=== PATIENT | male | born 1980 | race Caucasian/White ===

== ENCOUNTER 2017-09-11 11:55 | Emergency (ER) | payer MEDICARE, OTHER ==
[~2017-09-11] VITALS: Ht 180.3 cm; Wt 95.3 kg
[~2017-09-11 11:55] MED LIST: ASPI81TA50 PO; ATOR10TA PO; CARV3.12 PO; INSU100C4 SQ; INSU100V13 SQ; INSU100V31 SQ; LISI-334 PO; LISI10TA2 PO; LISI40TA PO; METO25TA4 PO; METO50TA29 PO; METO50TA6 PO
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
--- NOTE | 2017-09-11 13:12 | RAD ---
CT of the head without contrast, 09/11/2017: History: Head trauma The ventricles are within normal limits in size. There is no shift of the midline structures. There is no evidence of acute intracranial hemorrhage or mass effect. IMPRESSION: No acute intracranial abnormality is detected. CT of the facial bones without contrast, 09/11/2017: Noncontrast scans were obtained with multiplanar reconstructions produced. No facial bone fracture is identified. There is moderate mucosal thickening in the left maxillary sinus and both ethmoid sinuses. There is a defect in the medial wall of the left maxillary sinus compatible with previous sinus surgery. There is more extensive opacification of the right maxillary sinus in a pattern suggesting a combination of mucosal thickening and a large retention cyst. The frontal and sphenoid sinuses are clear. No free fluid is evident in the sinuses. There is swelling of the nasal turbinates with opacification of much of the nasal cavity anteriorly. The orbital contents are unremarkable. Moderate dental disease is noted. IMPRESSION: 1. Chronic paranasal sinusitis. 2. No acute facial bone abnormality is detected. PQRS Compliance Statement: One or more of the following individualized dose reduction techniques were utilized for this examination: 1. Automated exposure control 2. Adjustment of the mA and/or kV according to patient size 3. Use of iterative reconstruction technique
[2017-09-11 13:34] VITALS: BP 168/89
== END 2017-09-11 13:25 | disposition home or self-care (01) ==
LOC: ER 11:55
DX: S09.90XA Unspecified injury of head, initial encounter (principal); S00.83XA Contusion of other part of head, initial encounter; E11.9 Type 2 diabetes mellitus without complications; E78.00 Pure hypercholesterolemia, unspecified; I10 Essential (primary) hypertension; R04.0 Epistaxis; W55.22XA Struck by cow, initial encounter; Y93.89 Activity, other specified; Y99.8 Other external cause status; Y92.89 Other specified places as the place of occurrence of the external cause
CPT/HCPCS: 70450; 70486; 99284-25

== ENCOUNTER 2018-08-10 19:05 | Emergency (ER) | payer MEDICARE, OTHER ==
[~2018-08-10] VITALS: Ht 180.3 cm; Wt 95.3 kg
--- NOTE | 2018-08-10 19:14 | ED.ADGEN ---
Past History Past Medical History: Diabetes, High Cholesterol, Hypertension, Renal Disease, Other Past Surgical History: Other Past Surgical History AV graft for HD Smoking: Non-smoker Alcohol Use: None Drug Use: None Adult General Chief Complaint Chief Complaint ".. I am not feeling well... fever,... chills.;.. I am on hemodialysis.. I did not miss any.. I am just sick..." HPI HPI Patient is a 38 year old male who presents with above hx and complaints of fever and shaking chills today. Patient is on hemodialysis Saturdays for his end-stage renal disease secondary to diabetes complications. Pt. did get HD on Monday, Mon. Monday due to holiday schedule. Patient also complaining of increased shortness of breath, diaphoresis and tachycardia. Patient denies any travel or specific ill contacts. Patient normally follows with Dr. Simental. Review of Systems Review of Systems Constitutional: Hx of fever or chills [] Eyes: Denies change in visual acuity, redness, or eye pain [] HENT: Denies nasal congestion or sore throat [] Respiratory: Complaints of shortness of breath [] Cardiovascular: No additional information not addressed in HPI [] GI: Denies abdominal pain, nausea, vomiting, bloody stools or diarrhea [] : Denies dysuria or hematuria [] Musculoskeletal: Denies back pain or joint pain [] Integument: Denies rash or skin lesions [] Neurologic: Denies headache, focal weakness or sensory changes [] Endocrine: Denies polyuria or polydipsia [] All other systems were reviewed and found to be within normal limits, except as documented in this note. Family History Family History Diabetes Current Medications Current Medications Current Medications Medications (Trade) Dose Ordered Sig/Torrie Start Time Stop Time Status Last Admin Dose Admin Acetaminophen (Tylenol) 1,000 mg 1X ONCE 08/10/18 20:00 08/10/18 20:01 DC 08/10/18 20:06 1,000 MG Ceftriaxone Sodium 1 gm/ Sodium Chloride 50 ml @ 100 mls/hr 1X ONCE 08/10/18 23:45 08/11/18 00:14 UNV Ceftriaxone Sodium (Rocephin) 1 gm ONCE ONCE 08/11/18 00:00 08/11/18 00:11 DC Norepinephrine Bitartrate (Levophed) 4 mg STK-MED ONCE 08/10/18 23:26 08/10/18 23:28 DC Sodium Chloride 250 ml @ As Directed STK-MED ONCE 08/10/18 23:26 08/10/18 23:28 DC Vancomycin HCl (Vancomycin) 1 gm STK-MED ONCE 08/10/18 20:03 08/10/18 20:04 DC Vancomycin HCl 1 gm/Sodium Chloride 250 ml @ 250 mls/hr 1X ONCE 08/10/18 19:30 08/10/18 20:29 DC 08/10/18 20:08 250 MLS/HR See nursing for home meds Allergies Allergies Allergies Coded Allergies Type Severity Reaction Last Updated Verified No Known Drug Allergies 09/08/15 No Physical Exam Physical Exam Constitutional: in acute distress, ill in appearance. [] HENT: Normocephalic, atraumatic, bilateral external ears normal, oropharynx moist, no oral exudates, nose normal. [] Eyes: PERRLA, EOMI, conjunctiva normal, no discharge. [] Neck: Normal range of motion, no tenderness, supple, no stridor. [] Cardiovascular: Tachycardia Heart rate regular rhythm, no murmur []PMI to the left Lungs & Thorax: Bilateral breath sounds equal apex with scattered crackles and wheezes throughout on auscultation . Has[]old central line scars Abdomen: Bowel sounds normal, soft, no tenderness, no masses, no pulsatile masses. Obese. Tympanic distention Skin: Warm, diaphoretic, no erythema, no rash. [] Back: No tenderness, no CVA tenderness. [] Extremities: No tenderness, no cyanosis, no clubbing, ROM intact, ankle edema. [ ]Surgery scar right hip area . AV left arm has good thrill Neurologic: Alert and oriented X 3, normal motor function, decrease plantar sensory function, no focal deficits noted. [] Psychologic: Affect anxious, judgement normal, mood normal. [] Current Patient Data Vital Signs Vital Signs Date Time Temp Pulse Resp B/P (MAP) Pulse Ox O2 Delivery O2 Flow Rate FiO2 08/10/18 23:27 107 20 113/63 (80) 94 Room Air 08/10/18 22:40 100.8 Lab Results Laboratory Tests Test 08/10/18 19:45 08/10/18 20:15 08/10/18 21:09 White Blood Count 12.1 x10^3/uL (4.0-11.0) H Red Blood Count 3.56 x10^6/uL (4.30-5.70) L Hemoglobin 11.2 g/dL (13.0-17.5) L Hematocrit 33.6 % (39.0-53.0) L Mean Corpuscular Volume 94 fL (79-100) Mean Corpuscular Hemoglobin 31 pg (25-35) Mean Corpuscular Hemoglobin Concent 33 g/dL (31-37) Red Cell Distribution Width 15.2 % (11.5-14.5) H Platelet Count 211 x10^3/uL (140-400) Neutrophils (%) (Auto) 82 % (31-73) H Lymphocytes (%) (Auto) 8 % (24-48) L Monocytes (%) (Auto) 9 % (0-9) Eosinophils (%) (Auto) 0 % (0-3) Basophils (%) (Auto) 1 % (0-3) Neutrophils # (Auto) 9.8 x10^3uL (1.8-7.7) H Lymphocytes # (Auto) 1.0 x10^3/uL (1.0-4.8) Monocytes # (Auto) 1.1 x10^3/uL (0.0-1.1) Eosinophils # (Auto) 0.0 x10^3/uL (0.0-0.7) Basophils # (Auto) 0.1 x10^3/uL (0.0-0.2) Segmented Neutrophils % 79 % (35-66) H Band Neutrophils % 2 % (0-9) Lymphocytes % 7 % (24-48) L Monocytes % 11 % (0-10) H Basophils % 1 % (0-3) Toxic Granulation Slight Platelet Estimate Adequate (ADEQUATE) Large Platelets Occ Polychromasia Slight Prothrombin Time 11.1 SEC (9.4-11.4) Prothrombin Time INR 1.1 (0.9-1.1) PTT 31 SEC (23-33) Sodium Level 137 mmol/L (136-145) Potassium Level 4.5 mmol/L (3.5-5.1) Chloride Level 99 mmol/L (98-107) Carbon Dioxide Level 23 mmol/L (21-32) Anion Gap 15 (6-14) H Blood Urea Nitrogen 53 mg/dL (8-26) H Creatinine 8.0 mg/dL (0.7-1.3) H Estimated GFR (Cockcroft-Gault) 7.7 Glucose Level 136 mg/dL (70-99) H Calcium Level 9.4 mg/dL (8.5-10.1) Magnesium Level 2.0 mg/dL (1.8-2.4) Total Bilirubin 0.8 mg/dL (0.2-1.0) Direct Bilirubin 0.3 mg/dL (0.0-0.2) H Aspartate Amino Transferase (AST) 37 U/L (15-37) Alanine Aminotransferase (ALT) 37 U/L (16-63) Alkaline Phosphatase 110 U/L (46-116) Creatine Kinase 150 U/L (39-308) Troponin I Quantitative 0.045 ng/mL (0-0.055) AB-Dav-I-Type Natriuretic Peptide 2949 pg/mL (0-124) H Total Protein 7.7 g/dL (6.4-8.2) Albumin 3.1 g/dL (3.4-5.0) L Lipase 142 U/L (73-393) Influenza Type A (Rapid) Negative (NEGATIVE) Influenza Type B (Rapid) Negative (NEGATIVE) Group A Streptococcus Rapid Negative (NEGATIVE) Urine Collection Type Unknown Urine Color Yellow Urine Clarity Clear Urine pH 8.5 Urine Specific [place] 1.025 Urine Protein >100 mg/dl (NEG-TRACE) Urine Glucose (UA) 100 mg/dL (NEG) Urine Ketones (Stick) Trace mg/dL (NEG) Urine Blood Mod (NEG) Urine Nitrite Neg (NEG) Urine Bilirubin Neg (NEG) Urine Urobilinogen Dipstick 0.2 mg/dL (0.2 mg/dL) Urine Leukocyte Esterase Neg (NEG) Urine RBC 3-5 /HPF (0-2) Urine WBC 1-4 /HPF (0-4) Urine Squamous Epithelial Cells Occ /LPF Urine Bacteria 0 /HPF (0-FEW) Urine Opiates Screen Neg (NEG) Urine Methadone Screen Neg (NEG) Urine Barbiturates Neg (NEG) Urine Phencyclidine Screen Neg (NEG) Urine Amphetamine/Methamphetamine Neg (NEG) Urine Benzodiazepines Screen Neg (NEG) Urine Cocaine Screen Neg (NEG) Urine Cannabinoids Screen Neg (NEG) Urine Ethyl Alcohol Neg (NEG) EKG EKG My interpretation of EKG shows a sinus tachycardia that 124 beats with contour changes anterior lateral region.[] No findings acute STEMI with contralateral changes Radiology/Procedures Radiology/Procedures My interpretation of chest x-ray shows borderline cardiac silhouette. Increased cephalization consistent with CHF. No free air in the diaphragm. Large amount of air distention throughout abdomen. Possible early ileus. Hardware right hip area My interpretation chest x-ray post placement of central line shows no pneumothorax. Adequate placement of central line and right subclavian.[] Course & Med Decision Making Course & Med Decision Making Pertinent Labs and Imaging studies reviewed. (See chart for details) Critical Care- 90 min. interpretation ,evaluation and tx. ( Not counting central line placement. ) Procedure note:- Central line placement- Need placement due to hypotension. And need for IV access. Possible use of pressors and frequent blood draws. Emergent placement. Patient agreeable to procedure risks discussed.- Patient right subclavian area prepped with kit. [address] right subclavian. Sterile gown and gloves draping face mask ect. Patient placed in Trendelenburg position. Placed right subclavian by Seldinger technique with return of veinous blood. Biopatch placed. Sutured in place. Post x-ray showed adequate placement and no pneumothorax. Discussed presentation, testing and treatment plan with Dr. Pappas - will accept pt in transfer to [facility]. Further consults- Nephrology, possible ID consults. [] Final Impression Final Impression 1. Fever[]/Chills 2. Hypotension- SIRS/ Sepsis Syndrome 3. End-stage renal disease- HD BUN53/8.0 Creat 4. Diabetes 136 5. Leukocytosis with neutrophilia, segs and some toxic granulation 6. Anemia 11.2 7. Fluid Overload- BNP 2949/CHF/Pul. Edema 8. Malnutrition Alb. 3.1 Dragon Disclaimer Dragon Disclaimer This electronic medical record was generated, in whole or in part, using a voice recognition dictation system. Dragon Disclaimer This chart was dictated in whole or in part using Voice Recognition software in a busy, high-work load, and often noisy Emergency Department environment. It may contain unintended and wholly unrecognized errors or omissions. Discharge Summary Visit Information Final Diagnosis Problems Medical Problems: (1) End stage renal disease on dialysis Status: Acute (2) Fever Status: Acute Brief Hospital Course Allergies Allergies Coded Allergies Type Severity Reaction Last Updated Verified No Known Drug Allergies 09/08/15 No Vital Signs Vital Signs Date Time Temp Pulse Resp B/P (MAP) Pulse Ox O2 Delivery O2 Flow Rate FiO2 08/10/18 23:27 107 20 113/63 (80) 94 Room Air 08/10/18 22:40 100.8 Lab Results Laboratory Tests Test 08/10/18 19:45 08/10/18 20:15 08/10/18 21:09 White Blood Count 12.1 x10^3/uL (4.0-11.0) Red Blood Count 3.56 x10^6/uL (4.30-5.70) Hemoglobin 11.2 g/dL (13.0-17.5) Hematocrit 33.6 % (39.0-53.0) Mean Corpuscular Volume 94 fL (79-100) Mean Corpuscular Hemoglobin 31 pg (25-35) Mean Corpuscular Hemoglobin Concent 33 g/dL (31-37) Red Cell Distribution Width 15.2 % (11.5-14.5) Platelet Count 211 x10^3/uL (140-400) Neutrophils (%) (Auto) 82 % (31-73) Lymphocytes (%) (Auto) 8 % (24-48) Monocytes (%) (Auto) 9 % (0-9) Eosinophils (%) (Auto) 0 % (0-3) Basophils (%) (Auto) 1 % (0-3) Neutrophils # (Auto) 9.8 x10^3uL (1.8-7.7) Lymphocytes # (Auto) 1.0 x10^3/uL (1.0-4.8) Monocytes # (Auto) 1.1 x10^3/uL (0.0-1.1) Eosinophils # (Auto) 0.0 x10^3/uL (0.0-0.7) Basophils # (Auto) 0.1 x10^3/uL (0.0-0.2) Segmented Neutrophils % 79 % (35-66) Band Neutrophils % 2 % (0-9) Lymphocytes % 7 % (24-48) Monocytes % 11 % (0-10) Basophils % 1 % (0-3) Toxic Granulation Slight Platelet Estimate Adequate (ADEQUATE) Large Platelets Occ Polychromasia Slight Prothrombin Time 11.1 SEC (9.4-11.4) Prothromb Time International Ratio 1.1 (0.9-1.1) Activated Partial Thromboplast Time 31 SEC (23-33) Sodium Level 137 mmol/L (136-145) Potassium Level 4.5 mmol/L (3.5-5.1) Chloride Level 99 mmol/L (98-107) Carbon Dioxide Level 23 mmol/L (21-32) Anion Gap 15 (6-14) Blood Urea Nitrogen 53 mg/dL (8-26) Creatinine 8.0 mg/dL (0.7-1.3) Estimated GFR (Cockcroft-Gault) 7.7 Glucose Level 136 mg/dL (70-99) Calcium Level 9.4 mg/dL (8.5-10.1) Magnesium Level 2.0 mg/dL (1.8-2.4) Total Bilirubin 0.8 mg/dL (0.2-1.0) Direct Bilirubin 0.3 mg/dL (0.0-0.2) Aspartate Amino Transf (AST/SGOT) 37 U/L (15-37) Alanine Aminotransferase (ALT/SGPT) 37 U/L (16-63) Alkaline Phosphatase 110 U/L (46-116) Creatine Kinase 150 U/L (39-308) Troponin I Quantitative 0.045 ng/mL (0-0.055) ZQ-Jen-P-Type Natriuretic Peptide 2949 pg/mL (0-124) Total Protein 7.7 g/dL (6.4-8.2) Albumin 3.1 g/dL (3.4-5.0) Lipase 142 U/L (73-393) Influenza Type A (Rapid) Negative (NEGATIVE) Influenza Type B (Rapid) Negative (NEGATIVE) Group A Streptococcus Rapid Negative (NEGATIVE) Urine Collection Type Unknown Urine Color Yellow Urine Clarity Clear Urine pH 8.5 Urine Specific [place] 1.025 Urine Protein >100 mg/dl (NEG-TRACE) Urine Glucose (UA) 100 mg/dL (NEG) Urine Ketones (Stick) Trace mg/dL (NEG) Urine Blood Mod (NEG) Urine Nitrite Neg (NEG) Urine Bilirubin Neg (NEG) Urine Urobilinogen Dipstick 0.2 mg/dL (0.2 mg/dL) Urine Leukocyte Esterase Neg (NEG) Urine RBC 3-5 /HPF (0-2) Urine WBC 1-4 /HPF (0-4) Urine Squamous Epithelial Cells Occ /LPF Urine Bacteria 0 /HPF (0-FEW) Urine Opiates Screen Neg (NEG) Urine Methadone Screen Neg (NEG) Urine Barbiturates Neg (NEG) Urine Phencyclidine Screen Neg (NEG) Urine Amphetamine/Methamphetamine Neg (NEG) Urine Benzodiazepines Screen Neg (NEG) Urine Cocaine Screen Neg (NEG) Urine Cannabinoids Screen Neg (NEG) Urine Ethyl Alcohol Neg (NEG) Brief Hospital Course Mr. Ramos is a 38 old male who presented with fever and chills. Hx ESRD- HD, DM and Pul. Edema. Discharge Information Condition at Discharge: Improved Disposition/Orders: D/C to Another Facility Dischare Medications Current Medications Vancomycin HCl 1 gm/Sodium Chloride 250 ml @ 250 mls/hr 1X ONCE IV Last administered on 08/10/18at 20:08; Admin Dose 250 MLS/HR; Start 08/10/18 at 19: 30; Stop 08/10/18 at 20:29; Status DC Acetaminophen (Tylenol) 1,000 mg 1X ONCE PO Last administered on 08/10/18at 20 :06; Admin Dose 1,000 MG; Start 08/10/18 at 20:00; Stop 08/10/18 at 20:01; Status DC Sodium Chloride 250 ml @ As Directed STK-MED ONCE .ROUTE ; Start 08/10/18 at 20:03; Stop 08/10/18 at 20:04; Status DC Vancomycin HCl (Vancomycin) 1 gm STK-MED ONCE .ROUTE ; Start 08/10/18 at 20:03 ; Stop 08/10/18 at 20:04; Status DC Sodium Chloride 250 ml @ As Directed STK-MED ONCE .ROUTE ; Start 08/10/18 at 23:26; Stop 08/10/18 at 23:28; Status DC Norepinephrine Bitartrate (Levophed) 4 mg STK-MED ONCE IV ; Start 08/10/18 at 23:26; Stop 08/10/18 at 23:28; Status DC Ceftriaxone Sodium 1 gm/ Sodium Chloride 50 ml @ 100 mls/hr 1X ONCE IV ; Start 08/10/18 at 23:45; Stop 08/11/18 at 00:14; Status UNV Ceftriaxone Sodium (Rocephin) 1 gm ONCE ONCE IVP ; Start 08/11/18 at 00:00; Stop 08/11/18 at 00:11; Status DC Active Scripts Active Lipitor (Atorvastatin Calcium) 10 Mg Tablet 1 Tab PO QHS Novolog (Insulin Aspart) 100 Unit/1 Ml Cartridge 8 Unit SQ TIDAC 30 Days Levemir (Insulin Detemir) 100 Unit/1 Ml Vial 30 Unit SQ QHS 30 Days Metoprolol Tartrate 50 Mg Tablet 1 Tab PO BID Lisinopril 40 Mg Tablet 1 Tab PO DAILY Reported Aspir-Low (Aspirin) 81 Mg Tablet. 81 Mg PO DAILY JENISE MAO MD Aug 10, 2018 19:14
[2018-08-10] MEDS ORDERED: VANCOMYCIN 1 GM in IV NORMAL SALINE 250ML 250 ML IV ONE (19:30)
[2018-08-10] MEDS ORDERED: ACETAMINOPHEN 500 MG TABLET PO ONE (20:00)
[2018-08-10] MEDS ORDERED: VANCOMYCIN 1 GM VIAL. ONE (20:03)
[2018-08-10] MEDS ORDERED: IV NORMAL SALINE 250ML 250 ML ONE ×2 (20:03→23:26)
[2018-08-10 20:14] LABS: BASO # 0.1 x10^3/uL (0.0-0.2); BASO % 1 % (0-3); EOS % 0 % (0-3); HEMATOCRIT 33.6 % (39.0-53.0); HEMOGLOBIN 11.2 g/dL (13.0-17.5); LYMPH % 8 % (24-48); MEAN CORPUSCULAR HEMOGLOBIN 31 pg (25-35); MEAN CORPUSCULAR HGB CONC 33 g/dL (31-37); MEAN CORPUSCULAR VOLUME 94 fL (79-100); MONO # 1.1 x10^3/uL (0.0-1.1); MONO % 9 % (0-9); NEUT # 9.8 x10^3uL (1.8-7.7); NEUT % 82 % (31-73); PLATELET COUNT 211 x10^3/uL (140-400); RED BLOOD COUNT 3.56 x10^6/uL (4.30-5.70); RED CELL DISTRIBUTION WIDTH 15.2 % (11.5-14.5); WHITE BLOOD COUNT 12.1 x10^3/uL (4.0-11.0)
[2018-08-10 20:32] LABS: ALBUMIN 3.1 g/dL (3.4-5.0); CALCIUM 9.4 mg/dL (8.5-10.1); DIRECT BILIRUBIN 0.3 mg/dL (0.0-0.2); GFR 7.7; POTASSIUM 4.5 mmol/L (3.5-5.1); TOTAL BILIRUBIN 0.8 mg/dL (0.2-1.0); TOTAL PROTEIN 7.7 g/dL (6.4-8.2)
[2018-08-10 21:32] LABS: BARBITURATES NEG (NEG); BENZODIAZEPINES NEG (NEG); CANNABINOIDS NEG (NEG); COCAINE NEG (NEG); METHADONE NEG (NEG); OPIATES NEG (NEG); PHENCYCLIDINE NEG (NEG)
--- NOTE | 2018-08-10 21:47 | RAD ---
EXAM: Abdomen acute complete. HISTORY: Pain. FINDINGS: A frontal view of the chest and frontal upright and supine views of the abdomen are obtained. There is no infiltrate, pleural effusion or pneumothorax. The heart is normal in size. There is prominent air-filled bowel within the right abdomen. There is stool within the distal colon. There is no free air. No transition point is seen. IMPRESSION: 1. No acute pulmonary finding. 2. Prominent air-filled bowel within the right abdomen. No clear transition point is seen to suggest obstruction. The possibility of a component of mild ileus is not excluded. Electronically signed by: Nanda Nuñez MD (08/10/2018 9:43 PM) [id number]
[2018-08-10 21:55] LABS: AMPHETAMINE/METHAMPHETAMINE NEG (NEG)
--- NOTE | 2018-08-10 22:00 | EKG ---
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
[2018-08-10 22:04] LABS: BILIRUBIN,URINE NEG (NEG); CLARITY,URINE CLEAR; COLOR,URINE YELLOW; GLUCOSE,URINE 100 mg/dL (NEG)
[2018-08-10 22:05] LABS: BACTERIA,URINE 0 /HPF (0-FEW); NITRITE,URINE NEG (NEG); SQUAMOUS EPITHELIAL CELL,UR OCC /LPF; UROBILINOGEN,URINE 0.2 mg/dL (0.2 mg/dL)
[2018-08-10 22:29] LABS: INFLUENZA A PATIENT NEGATIVE (NEGATIVE); INFLUENZA B PATIENT NEGATIVE (NEGATIVE)
[2018-08-10 23:24] LABS: % BANDS 2 % (0-9); % BASOS 1 % (0-3); % LYMPHS 7 % (24-48); % MONOS 11 % (0-10); % SEGS 79 % (35-66)
[2018-08-10 23:26] LABS: PLT ESTIMATE ADEQUATE (ADEQUATE); POLYCHROMASIA SLIGHT; TOXIC GRANULATION SLIGHT
[2018-08-10] MEDS ORDERED: NOREPINEPHRINE BITARTRATE 4 MG/4 ML VIAL. IV ONE (23:26)
[2018-08-10 23:27] VITALS: BP 113/63
[2018-08-11] MEDS ORDERED: cefTRIAXone IV Push 1 GM VIAL. IVP ONE
--- NOTE | 2018-08-11 03:45 | RAD ---
AP portable chest 08/10/2018. Reason for exam: Central line placement. Comparison is made with a study of 03/23/2016. A right subclavian central line is been placed. Its tip reaches the mid SVC level. No pneumothorax is seen. No new infiltrate or effusion is apparent. Heart size is normal. IMPRESSION: Placement of right subclavian central line without apparent complication. Electronically signed by: John Wiley Jr., MD (08/11/2018 3:42 AM) [facility]
== END 2018-08-11 00:23 | disposition short-term general hospital (02) ==
LOC: ER 19:05
DX: I12.0 Hypertensive chronic kidney disease with stage 5 chronic kidney disease or end stage renal disease (principal); I95.9 Hypotension, unspecified; E11.22 Type 2 diabetes mellitus with diabetic chronic kidney disease; N18.6 End stage renal disease; D72.828 Other elevated white blood cell count; D64.9 Anemia, unspecified; E46 Unspecified protein-calorie malnutrition; E87.70 Fluid overload, unspecified; Z99.2 Dependence on renal dialysis; Z68.29 Body mass index [BMI] 29.0-29.9, adult
CPT/HCPCS: 36415; 36556; 71045; 74022; 80048; 80076; 80307; 81001; 82550; 83690; 83735; 83880; 84443; 84484; 85007; 85025; 85610; 85730; 87040; 87070; 87186; 87205; 87804; 87880; 93005; 96365; 99291; 99292; J3370; J7050